=== PATIENT | female | born 1995 | race Caucasian/White ===

== ENCOUNTER → 2021-04-28 | Outpatient (CLI) | payer BC ==
--- NOTE | 2021-04-28 11:21 | Diagnostic Imaging Report ---
INDICATION: Back pain. EXAMINATION: Lumbar spine, 3 views. FINDINGS: The lumbosacral spine shows good alignment. Body height and disc spaces are well-maintained. Facets show good alignment. No hypertrophic bony changes. No evidence of pars defect. IMPRESSION: Normal lumbosacral spine. Dictated by: Dictated on workstation # [id number]
== END ==
LOC: RAD 10:58
PROVIDERS: ATTEND Nurse Practitioner Family
DX: S33.5XXA Sprain of ligaments of lumbar spine, initial encounter (principal); X58.XXXA Exposure to other specified factors, initial encounter
CPT/HCPCS: 72100